=== PATIENT | female | born 1965 | race Caucasian/White ===

== ENCOUNTER 2023-06-17 09:45 | Emergency (ER) | payer BC ==
[2023-06-17] MEDS ORDERED: Ketorolac Tromethamine 60 MG/2 ML VIAL ONE (10:30)
[2023-06-17] MEDS ORDERED: traMADol HCl 50 MG TAB ONE (10:33)
== END 2023-06-17 11:55 | disposition home or self-care (01) ==
LOC: NAV ERS 09:45
DX: S39.012A Strain of muscle, fascia and tendon of lower back, initial encounter (principal); I10 Essential (primary) hypertension; X58.XXXA Exposure to other specified factors, initial encounter
CPT/HCPCS: 72131; 96372; J1885